=== PATIENT | male | born 2000 | race Two or more races ===

== ENCOUNTER 2018-01-23 18:28 | Emergency (ER) | payer SELFPAY ==
[2018-01-23] MEDS: LIDOCAINE WITH 8.4% SOD BICARB 3 ML DISP.SYRIN. INJ (19:00)
== END 2018-01-23 19:40 | disposition home or self-care (01) ==
LOC: ER 19:40
DX: S61.213A Laceration without foreign body of left middle finger without damage to nail, initial encounter (principal); W45.8XXA Other foreign body or object entering through skin, initial encounter; Y93.89 Activity, other specified; Y99.8 Other external cause status; Y92.89 Other specified places as the place of occurrence of the external cause
CPT/HCPCS: 12001; 96372; 99282; 99283